=== PATIENT | female | born 1970 | race Caucasian/White ===

== ENCOUNTER 2017-01-10 16:41 | Emergency (ER) | payer SELFPAY ==
--- NOTE | ~2017-01-10 | ER ---
PATIENT'S NAME: [facility] AGE: 46 Y [address] ROOM: [place] [address] LOCATION: [facility] ADMIT DATE: 01/10/2017 ER/Outpatient Report DISCHARGE DATE: 01/10/2017 FAMILY PHYSICIAN: PHYSICIAN, NO ATTENDING PHYSICIAN: Noe Roy TIME SEEN: 1710 hours. CHIEF COMPLAINT: Left elbow pain. HISTORY OF PRESENT ILLNESS: The patient is a 46-year-old female who said for the last 2 months she has had medial elbow pain. She said today she was throwing a frisbee when she started having more severe pain. She said she has noticed some numbness to her hand. She denied any trauma. 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 ALLERGIES: LORABID AND ERYTHROMYCIN. CURRENT MEDICATIONS: She had been using [id number] antiinflammatory. MEDICAL HISTORY: No chronic diseases. SURGERIES: Tubal LEEP surgery, cholecystectomy, and hysterectomy. SOCIAL HISTORY: Smoker, a pack a day. Denies alcohol. Works at a fast food restaurant. REVIEW OF SYSTEMS: CONSTITUTIONAL: General health good. HEAD AND EENT: Negative. RESPIRATORY: No shortness of breath. CARDIOVASCULAR: Negative. MUSCULOSKELETAL: Left elbow pain and some numbness to her hand. OBJECTIVE FINDINGS: VITAL SIGNS: Reviewed. GENERAL: The patient is alert and cooperative. MUSCULOSKELETAL: Exam of the left arm, had normal range of motion of her PATIENT'S NAME: [facility] AGE: 46 Y [address] ROOM: [place] [address] LOCATION: [facility] ADMIT DATE: 01/10/2017 ER/Outpatient Report DISCHARGE DATE: 01/10/2017 FAMILY PHYSICIAN: PHYSICIAN, NO ATTENDING PHYSICIAN: Noe Roy shoulder. No palpable tenderness. She did have some palpable tenderness over the medial epicondyle. The ulnar notch did not appear to be real tender. Good capillary refill to her fingers. Sensation appeared normal. Strength appeared normal to her hand. DIAGNOSTIC DATA: X-rays showed normal bony anatomy. ASSESSMENT: Left elbow pain. PLAN: Sling for rest. Naprosyn 500 b.i.d. Ice 10-15 minutes tonight every couple hours. Recommend followup in 3 or 4 days if not improving, especially if she has any more numbness to her 4th and 5th fingers. The patient was also given a work note for the next 3 days. DELMY ROMERO FOR DO CHAIM CHIRINOS/kevin /[id number] d: 01/10/172029 t: 01/16/17 1009, OUTPATIENT REPORT
== END 2017-01-10 17:36 | disposition disaster alternative care site (69) ==
LOC: GMED 16:41
DX: M25.522 Pain in left elbow (principal); F17.210 Nicotine dependence, cigarettes, uncomplicated; Z90.49 Acquired absence of other specified parts of digestive tract; Z90.710 Acquired absence of both cervix and uterus; Z88.1 Allergy status to other antibiotic agents